=== PATIENT | male | born 1985 | race Caucasian/White ===

== ENCOUNTER 2018-02-17 03:02 | Emergency (ER) | payer OTHER, SELFPAY ==
[2018-02-17 03:04] VITALS: BP 166/108; PULSE 76; RESP 16; TEMP 36.4; O2SAT 97; BMI 27.7
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
[2018-02-17 03:54] VITALS: RESP 16
== END 2018-02-17 03:54 | disposition home or self-care (01) ==
PROVIDERS: Emergency Provider Emergency Medicine
DX: S90.01XA Contusion of right ankle, initial encounter (principal); S90.31XA Contusion of right foot, initial encounter; V89.2XXA Person injured in unspecified motor-vehicle accident, traffic, initial encounter; Y93.89 Activity, other specified; Y92.410 Unspecified street and highway as the place of occurrence of the external cause; Y99.0 Civilian activity done for income or pay
CPT/HCPCS: 73610; 73630; 99282

== ENCOUNTER 2023-08-07 13:24 | Emergency (ER) | payer OTHER, SELFPAY ==
[2023-08-07 13:24] VITALS: BP 166/108; PULSE 86; RESP 18; TEMP 36.4; O2SAT 100
--- NOTE | 2023-08-07 13:40 | RAD_ITS ---
INDICATION: bent sideways EXAMINATION/TECHNIQUE: X-RAY - LEFT FOOT XR Toes Min 2 Views 4 VIEWS COMPARISON: No relevant prior comparison study available FINDINGS: SOFT TISSUES: No soft tissue swelling or gas. No radiopaque foreign body. BONES/JOINTS: Oblique displaced fracture of the distal aspect of the proximal phalanx of the fifth toe. The remainder of the osseous structures appear intact no evidence of dislocation. No sclerotic or destructive changes observed. RAD/Toe(s) Min 2 Views IMPRESSION: Displaced fracture of the proximal phalanx of the fifth toe. Electronically Signed: Abebe Meza MD at 13:54 EDT ,
[2023-08-07] MEDS: Ibuprofen 600 MG Tablet PO (13:55)
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
[2023-08-07] MEDS: Lidocaine 1% (20 ml mdv) 20 ML Vial 10 ML INFILT (15:07)
[2023-08-07 15:29] VITALS: BP 145/94; PULSE 74; RESP 19; TEMP 36.8; O2SAT 94
== END 2023-08-07 15:30 | disposition home or self-care (01) ==
PROVIDERS: Emergency Provider Emergency Medicine; Visit Provider Emergency Medicine
DX: S92.511A Displaced fracture of proximal phalanx of right lesser toe(s), initial encounter for closed fracture (principal); X58.XXXA Exposure to other specified factors, initial encounter
CPT/HCPCS: 73660; 99282